=== PATIENT | female | born 1955 | race Two or more races ===

== ENCOUNTER 2017-03-28 11:19 | Outpatient (CLI) | payer OTHER ==
[~2017-03-28 11:19] MED LIST: CYMBALTA60 MG PO; GARLIC1 CAP PO; INTESTINEX1 CA1 PO; LEVSIN/SL0.125 MG SL; PEPCID20 MG PO; PERCOCET 5/3251 TAB PO; VIT C PO; [UNRECOGNIZED DRUG - OTHER] PO
== END 2017-03-28 11:28 | disposition home or self-care (01) ==
LOC: RAD 501 11:19
DX: M50.80 Other cervical disc disorders, unspecified cervical region (principal); M43.12 Spondylolisthesis, cervical region; S09.90XA Unspecified injury of head, initial encounter

== ENCOUNTER 2017-04-24 12:36 | Outpatient (CLI) | payer OTHER | END 2017-04-24 15:59 | disposition home or self-care (01) | LOC: NUCLEAR 12:36 | DX: M81.0 Age-related osteoporosis without current pathological fracture (principal) ==

== ENCOUNTER 2017-10-10 09:24 | Outpatient (CLI) | payer OTHER | END 2017-10-10 09:31 | disposition home or self-care (01) | LOC: RAD 09:24 | DX: J01.90 Acute sinusitis, unspecified (principal); J32.8 Other chronic sinusitis; Z01.811 Encounter for preprocedural respiratory examination ==

== ENCOUNTER 2017-12-06 08:53 | Outpatient (CLI) | payer OTHER ==
[~2017-12-06] VITALS: Ht 152.4 cm; Wt 79.4 kg
== END 2017-12-06 09:15 | disposition home or self-care (01) ==
LOC: OFIC 805 08:53
DX: H81.11 Benign paroxysmal vertigo, right ear (principal); R42 Dizziness and giddiness

== ENCOUNTER 2018-01-10 08:09 | Outpatient (CLI) | payer OTHER ==
[~2018-01-10] VITALS: Ht 152.4 cm; Wt 79.4 kg
== END 2018-01-10 08:25 | disposition home or self-care (01) ==
LOC: OFIC 805 08:09
DX: H81.11 Benign paroxysmal vertigo, right ear (principal); R42 Dizziness and giddiness

== ENCOUNTER 2018-04-04 09:03 | Outpatient (CLI) | payer OTHER ==
[~2018-04-04] VITALS: Ht 152.4 cm; Wt 79.4 kg
== END 2018-04-04 09:15 | disposition home or self-care (01) ==
LOC: OFIC 805 09:03
DX: H81.11 Benign paroxysmal vertigo, right ear (principal); R42 Dizziness and giddiness

== ENCOUNTER 2018-05-14 10:58 | Outpatient (CLI) | payer OTHER | END 2018-05-14 11:03 | disposition home or self-care (01) | LOC: RAD 10:58 | DX: M12.551 Traumatic arthropathy, right hip (principal) ==

== ENCOUNTER 2018-05-19 10:13 | Outpatient (CLI) | payer OTHER | END 2018-05-19 13:25 | disposition home or self-care (01) | LOC: LAB 10:13 | DX: J11.1 Influenza due to unidentified influenza virus with other respiratory manifestations (principal) ==

== ENCOUNTER 2018-06-16 09:04 | Outpatient (CLI) | payer OTHER | END 2018-06-16 15:00 | disposition home or self-care (01) | LOC: RAD 09:04 | DX: J45.998 Other asthma (principal) ==

== ENCOUNTER → 2018-08-25 | Outpatient (CLI) | payer OTHER | END | disposition home or self-care (01) | LOC: MAMO-SONO 09:52 | DX: N60.19 Diffuse cystic mastopathy of unspecified breast (principal); Z12.39 Encounter for other screening for malignant neoplasm of breast; Z12.31 Encounter for screening mammogram for malignant neoplasm of breast; Z87.898 Personal history of other specified conditions ==

== ENCOUNTER 2018-08-28 12:06 | Outpatient (CLI) | payer OTHER | END 2018-08-28 12:22 | disposition home or self-care (01) | LOC: RAD 12:06 | DX: M25.512 Pain in left shoulder (principal) ==

== ENCOUNTER 2018-10-27 08:31 | Outpatient (CLI) | payer OTHER | END 2018-10-27 08:34 | disposition home or self-care (01) | LOC: RAD 08:31 | DX: M16.0 Bilateral primary osteoarthritis of hip (principal) ==

== ENCOUNTER 2018-12-31 09:42 | Outpatient (CLI) | payer OTHER | END 2018-12-31 09:44 | disposition home or self-care (01) | LOC: MRI 09:42 | DX: M25.462 Effusion, left knee (principal); M17.12 Unilateral primary osteoarthritis, left knee | CPT/HCPCS: 73721 ==

== ENCOUNTER 2019-01-13 08:06 | Outpatient (CLI) | payer OTHER | END 2019-01-13 08:23 | disposition home or self-care (01) | LOC: RAD 08:06 → LAB 08:06 | DX: R07.89 Other chest pain (principal); D68.8 Other specified coagulation defects; E78.2 Mixed hyperlipidemia; N39.0 Urinary tract infection, site not specified ==

== ENCOUNTER 2019-03-30 08:07 | Outpatient (CLI) | payer OTHER | END 2019-03-30 08:18 | disposition home or self-care (01) | LOC: LAB 08:07 → RAD 08:07 | DX: M17.0 Bilateral primary osteoarthritis of knee (principal) ==

== ENCOUNTER 2019-12-21 08:06 | Outpatient (CLI) | payer OTHER | END 2019-12-21 08:16 | disposition home or self-care (01) | LOC: LAB 08:06 | PROVIDERS: ATTEND Internal Medicine Cardiovascular Disease | DX: E11.65 Type 2 diabetes mellitus with hyperglycemia (principal); Z20.828 Contact with and (suspected) exposure to other viral communicable diseases; I11.9 Hypertensive heart disease without heart failure; E78.00 Pure hypercholesterolemia, unspecified; E03.8 Other specified hypothyroidism; D64.89 Other specified anemias; Z12.11 Encounter for screening for malignant neoplasm of colon ==

== ENCOUNTER → 2019-12-22 08:59 | Outpatient (CLI) | payer OTHER | END | disposition home or self-care (01) | LOC: LAB 08:59 | PROVIDERS: ATTEND Specialist | DX: D64.89 Other specified anemias (principal); E11.65 Type 2 diabetes mellitus with hyperglycemia; Z12.11 Encounter for screening for malignant neoplasm of colon ==

== ENCOUNTER 2019-12-22 10:06 | Outpatient (CLI) | payer OTHER | END 2019-12-22 10:08 | disposition home or self-care (01) | LOC: MAMO-SONO 10:06 | PROVIDERS: ATTEND Specialist | DX: Z12.31 Encounter for screening mammogram for malignant neoplasm of breast (principal) ==

== ENCOUNTER 2020-03-28 09:16 | Outpatient (CLI) | payer OTHER | END 2020-03-28 09:23 | disposition home or self-care (01) | LOC: LAB 09:16 | DX: D68.8 Other specified coagulation defects (principal); Z01.811 Encounter for preprocedural respiratory examination; Z01.812 Encounter for preprocedural laboratory examination; Z13.6 Encounter for screening for cardiovascular disorders; H04.563 Stenosis of bilateral lacrimal punctum ==

== ENCOUNTER → 2020-07-11 08:37 | Outpatient (CLI) | payer OTHER | END | disposition home or self-care (01) | LOC: LAB 08:37 | PROVIDERS: ATTEND Specialist | DX: E11.21 Type 2 diabetes mellitus with diabetic nephropathy (principal); E11.649 Type 2 diabetes mellitus with hypoglycemia without coma; M17.0 Bilateral primary osteoarthritis of knee ==

== ENCOUNTER 2021-05-16 11:25 | Outpatient (CLI) | payer OTHER | END 2021-05-16 11:26 | disposition home or self-care (01) | LOC: NUCLEAR 11:25 | PROVIDERS: ATTEND Obstetrics & Gynecology | DX: M81.0 Age-related osteoporosis without current pathological fracture (principal) ==

== ENCOUNTER 2021-05-22 08:38 | Outpatient (CLI) | payer OTHER | END 2021-05-22 08:49 | disposition home or self-care (01) | LOC: MAMO-SONO 08:38 | PROVIDERS: ATTEND Obstetrics & Gynecology | DX: N61.1 Abscess of the breast and nipple (principal) ==

== ENCOUNTER 2021-11-08 11:39 | Outpatient (CLI) | payer OTHER | END 2021-11-08 11:45 | disposition home or self-care (01) | LOC: RAD 11:39 | PROVIDERS: ATTEND Specialist | DX: J45.998 Other asthma (principal) ==

== ENCOUNTER 2023-01-04 13:59 | Emergency (ER) | payer OTHER ==
[~2023-01-04] VITALS: Ht 157.5 cm; Wt 85.3 kg
[2023-01-04] MEDS ORDERED: ATACAND4 MG (15:01)
[2023-01-04] MEDS ORDERED: NORFLEX100MG PO (18:56)
[2023-01-04] MEDS ORDERED: TYLENOL ARTHRI650 MG PO (18:56)
== END 2023-01-04 19:28 | disposition home or self-care (01) ==
LOC: ER 13:59
DX: R51.9 Headache, unspecified (principal); I10 Essential (primary) hypertension; Z88.6 Allergy status to analgesic agent; Z20.822 Contact with and (suspected) exposure to COVID-19
CPT/HCPCS: 36415; 70450; 93005; 96372; 99284; J2360

== ENCOUNTER 2023-01-28 08:43 | Outpatient (CLI) | payer OTHER ==
[~2023-01-28 08:43] MED LIST changes: +ATACAND4 MG; +NORFLEX100MG PO; +TYLENOL ARTHRI650 MG PO
== END 2023-01-28 08:56 | disposition home or self-care (01) ==
LOC: MAMO-SONO 08:43
PROVIDERS: ATTEND Obstetrics & Gynecology
DX: N60.11 Diffuse cystic mastopathy of right breast (principal); Z12.31 Encounter for screening mammogram for malignant neoplasm of breast; J45.20 Mild intermittent asthma, uncomplicated; K75.81 Nonalcoholic steatohepatitis (NASH)

== ENCOUNTER 2024-01-29 09:00 | Outpatient (CLI) | payer OTHER | END 2024-01-29 09:02 | disposition home or self-care (01) | LOC: MAMO-SONO 09:00 | PROVIDERS: ATTEND Obstetrics & Gynecology | DX: N60.11 Diffuse cystic mastopathy of right breast (principal); Z12.31 Encounter for screening mammogram for malignant neoplasm of breast ==

== ENCOUNTER 2025-02-15 10:35 | Outpatient (CLI) | payer OTHER | END 2025-02-15 10:41 | disposition home or self-care (01) | LOC: MAMO-SONO 10:35 | PROVIDERS: ATTEND Obstetrics & Gynecology | DX: N60.11 Diffuse cystic mastopathy of right breast (principal); N60.12 Diffuse cystic mastopathy of left breast; Z12.31 Encounter for screening mammogram for malignant neoplasm of breast ==

== ENCOUNTER 2025-02-18 09:15 | Outpatient (CLI) | payer OTHER | END 2025-02-18 09:16 | disposition home or self-care (01) | LOC: NUCLEAR 09:15 | PROVIDERS: ATTEND Obstetrics & Gynecology | DX: M81.0 Age-related osteoporosis without current pathological fracture (principal) ==